=== PATIENT | male | born 1960 | race Caucasian/White ===

== ENCOUNTER 2024-08-23 06:39 | Day surgery (SDC) | payer MEDICARE, BC ==
[2024-08-23] MEDS: Lactated Ringers 1,000 ML IV SCH (07:10)
[2024-08-23] MEDS ORDERED: Lidocaine 2% 5 ML SDV ONE (07:50)
[2024-08-23] MEDS ORDERED: propofoL 500 MG/50 ML 50 ML ONE (07:50)
[2024-08-23] MEDS ORDERED: Propofol 200 MG/20 ML SDV ONE (08:05)
[2024-08-23] MEDS ORDERED: Lactated Ringers 1,000 ML IV SCH (08:30)
== END 2024-08-23 09:13 | disposition home or self-care (01) ==
LOC: MW.SDS 06:39
PROVIDERS: ATTEND Surgery
DX: Z12.11 Encounter for screening for malignant neoplasm of colon (principal); K63.5 Polyp of colon; K57.30 Diverticulosis of large intestine without perforation or abscess without bleeding; E11.9 Type 2 diabetes mellitus without complications; K21.9 Gastro-esophageal reflux disease without esophagitis; I10 Essential (primary) hypertension; Z79.82 Long term (current) use of aspirin; Z79.899 Other long term (current) drug therapy; Z79.84 Long term (current) use of oral hypoglycemic drugs; Z87.891 Personal history of nicotine dependence
CPT/HCPCS: 00811; J2003; J2704; J7120